=== PATIENT | male | born 1955 | race Asian ===

== ENCOUNTER 2017-01-05 09:26 | Outpatient (CLI) | payer OTHER ==
[2017-01-05 10:05] LABS: PLATELET COUNT 137 K/uL (142-355)
[2017-01-05 10:27] LABS: POTASSIUM 4.5 mmol/L (3.6-5.2)
== END 2017-01-05 19:21 | disposition home or self-care (01) ==
LOC: LABW 09:26
DX: I10 Essential (primary) hypertension (principal); Z13.89 Encounter for screening for other disorder; E78.4 Other hyperlipidemia; E11.9 Type 2 diabetes mellitus without complications; Z79.899 Other long term (current) drug therapy; R53.1 Weakness; Z51.81 Encounter for therapeutic drug level monitoring; M79.671 Pain in right foot
CPT/HCPCS: 36415; 80053; 80061; 83036; 84550; 85027; 86803

== ENCOUNTER 2017-09-16 10:12 | Outpatient (CLI) | payer OTHER ==
[2017-09-16 10:51] LABS: POTASSIUM 3.9 mmol/L (3.6-5.2)
== END 2017-09-16 20:54 | disposition home or self-care (01) ==
LOC: LABW 10:12
DX: I10 Essential (primary) hypertension (principal); E11.9 Type 2 diabetes mellitus without complications; Z79.899 Other long term (current) drug therapy; Z51.81 Encounter for therapeutic drug level monitoring; Z12.5 Encounter for screening for malignant neoplasm of prostate; E78.4 Other hyperlipidemia; M79.672 Pain in left foot
CPT/HCPCS: 36415; 80048; 80061; 83036; 84153; 84460; 84550

== ENCOUNTER 2021-06-12 08:30 | Emergency (ER) | payer OTHER ==
[~2021-06-12] VITALS: Ht 180.3 cm; Wt 115.2 kg
[2021-06-12 08:38] VITALS: BP 158/61; TEMP 97.8
== END 2021-06-12 11:20 | disposition home or self-care (01) ==
LOC: ED 08:30
PROC: 0HQ3XZZ Repair Left Ear Skin, External Approach (ICD-10-PCS; principal; 2021-06-12)
DX: S01.312A Laceration without foreign body of left ear, initial encounter (principal); W01.190A Fall on same level from slipping, tripping and stumbling with subsequent striking against furniture, initial encounter; Y92.128 Other place in nursing home as the place of occurrence of the external cause
CPT/HCPCS: 90715; 99283

== ENCOUNTER 2021-06-19 09:33 | Emergency (ER) | payer OTHER ==
[~2021-06-19] VITALS: Ht 180.3 cm; Wt 115.2 kg
[2021-06-19 09:43] VITALS: BP 177/108; TEMP 97.5
== END 2021-06-19 10:05 | disposition home or self-care (01) ==
LOC: ED 09:33
DX: S01.312D Laceration without foreign body of left ear, subsequent encounter (principal); W01.190D Fall on same level from slipping, tripping and stumbling with subsequent striking against furniture, subsequent encounter; Y92.89 Other specified places as the place of occurrence of the external cause

== ENCOUNTER 2021-06-26 10:53 | Emergency (ER) | payer OTHER ==
[~2021-06-26] VITALS: Ht 180.3 cm; Wt 115.7 kg
[2021-06-26 11:04] VITALS: BP 164/77; TEMP 97.8
== END 2021-06-26 11:30 | disposition home or self-care (01) ==
LOC: ED 10:53
DX: Z48.02 Encounter for removal of sutures (principal)

== ENCOUNTER 2021-08-01 08:11 | Outpatient (CLI) | payer OTHER | END 2021-08-01 19:07 | disposition home or self-care (01) | LOC: CT 08:11 | PROVIDERS: ATTEND Surgery | DX: C18.2 Malignant neoplasm of ascending colon (principal) | CPT/HCPCS: 36415; 82565; 84520; Q9963 ==

== ENCOUNTER 2021-12-12 18:22 | Emergency (ER) | payer OTHER ==
[~2021-12-12] VITALS: Ht 180.3 cm; Wt 114.3 kg
[2021-12-12 19:35] LABS: PLATELET COUNT 203 K/uL (142-355)
[2021-12-12 19:44] LABS: POTASSIUM 3.9 mmol/L (3.6-5.2)
[2021-12-12 19:54] LABS: PARTIAL THROMBOPLASTIN TIME 26.7 SECONDS (24.5-33.6)
[2021-12-12 21:30] VITALS: BP 161/77; TEMP 97.9
== END 2021-12-12 21:35 | disposition short-term general hospital (02) ==
LOC: ED 18:22
PROVIDERS: Emergency Medicine
DX: I63.89 Other cerebral infarction (principal); I50.9 Heart failure, unspecified; Z11.52 Encounter for screening for COVID-19
CPT/HCPCS: 36415; 36600; 80053; 82805; 83880; 84484; 85027; 85379; 85610; 85730; 87635; 93005; 96360; 96365; 99285; J1940; U0003

== ENCOUNTER 2022-01-13 11:23 | Outpatient (CLI) | payer OTHER ==
[2022-01-13 11:39] LABS: PLATELET COUNT 169 K/uL (142-355)
== END 2022-01-13 19:33 | disposition home or self-care (01) ==
LOC: LAB 11:23
PROVIDERS: ATTEND Family Medicine
DX: E78.49 Other hyperlipidemia (principal); E11.9 Type 2 diabetes mellitus without complications; N40.0 Benign prostatic hyperplasia without lower urinary tract symptoms; Z89.511 Acquired absence of right leg below knee; I48.91 Unspecified atrial fibrillation; N18.2 Chronic kidney disease, stage 2 (mild); R97.20 Elevated prostate specific antigen [PSA]; C18.6 Malignant neoplasm of descending colon; C78.7 Secondary malignant neoplasm of liver and intrahepatic bile duct; I69.354 Hemiplegia and hemiparesis following cerebral infarction affecting left non-dominant side; R26.2 Difficulty in walking, not elsewhere classified; I63.9 Cerebral infarction, unspecified; Z90.49 Acquired absence of other specified parts of digestive tract; R53.1 Weakness; G47.00 Insomnia, unspecified; I12.9 Hypertensive chronic kidney disease with stage 1 through stage 4 chronic kidney disease, or unspecified chronic kidney disease
CPT/HCPCS: 80053; 80061; 81002; 82043; 83036; 83735; 84439; 84443; 85027

== ENCOUNTER 2022-12-25 09:25 | Outpatient (CLI) | payer OTHER | END 2022-12-25 19:48 | disposition home or self-care (01) | LOC: NM 09:25 | PROVIDERS: ATTEND Family Medicine | DX: L89.892 Pressure ulcer of other site, stage 2 (principal) | CPT/HCPCS: A9561 ==

== ENCOUNTER 2023-01-20 10:53 | Outpatient (CLI) | payer OTHER ==
[2023-01-20 11:16] LABS: PLATELET COUNT 136 K/uL (142-355)
[2023-01-20 11:45] LABS: POTASSIUM 3.9 mmol/L (3.6-5.2)
== END 2023-01-20 19:15 | disposition home or self-care (01) ==
LOC: LAB 10:53
PROVIDERS: ATTEND Family Medicine
DX: M86.171 Other acute osteomyelitis, right ankle and foot (principal)
CPT/HCPCS: 80053; 85027; 85652; 86140

== ENCOUNTER 2023-02-09 15:27 | Outpatient (CLI) | payer OTHER ==
[~2023-02-09] VITALS: Ht 165.1 cm; Wt 99.8 kg
[2023-02-09 17:00] VITALS: BP 148/94; TEMP 98
[2023-02-09 17:33] LABS: POTASSIUM 3.8 mmol/L (3.6-5.2)
[2023-02-09 19:45] VITALS: BP 105/61; TEMP 98.6
== END 2023-02-09 19:11 | disposition home or self-care (01) ==
LOC: INF 15:27
PROVIDERS: ATTEND Internal Medicine
DX: M86.161 Other acute osteomyelitis, right tibia and fibula (principal)
CPT/HCPCS: 80048; 96365; 96366; J3370

== ENCOUNTER 2023-02-10 15:15 | Outpatient (CLI) | payer OTHER ==
[~2023-02-10] VITALS: Ht 165.1 cm; Wt 99.8 kg
== END 2023-02-10 19:01 | disposition home or self-care (01) ==
LOC: INF 15:15
PROVIDERS: ATTEND Internal Medicine
DX: M86.161 Other acute osteomyelitis, right tibia and fibula (principal)
CPT/HCPCS: 96365

== ENCOUNTER 2023-02-11 15:43 | Outpatient (CLI) | payer OTHER ==
[~2023-02-11] VITALS: Ht 165.1 cm; Wt 99.8 kg
[2023-02-11 17:47] VITALS: BP 96/54; TEMP 97.5
== END 2023-02-11 19:20 | disposition home or self-care (01) ==
LOC: INF 15:43
PROVIDERS: ATTEND Internal Medicine Endocrinology, Diabetes & Metabolism
DX: M86.161 Other acute osteomyelitis, right tibia and fibula (principal)
CPT/HCPCS: J3370

== ENCOUNTER 2023-02-12 15:14 | Outpatient (CLI) | payer OTHER | END 2023-02-12 18:54 | disposition home or self-care (01) | LOC: INF 15:14 | PROVIDERS: ATTEND Internal Medicine Endocrinology, Diabetes & Metabolism | DX: M86.161 Other acute osteomyelitis, right tibia and fibula (principal) | CPT/HCPCS: 96365; 96366; J3370 ==

== ENCOUNTER 2023-02-13 15:19 | Outpatient (CLI) | payer OTHER ==
[~2023-02-13] VITALS: Ht 165.1 cm; Wt 99.8 kg
[2023-02-13 17:42] VITALS: BP 129/78; BP 134/78; TEMP 98.5; TEMP 98.6
[2023-02-13 19:19] VITALS: BP 129/78; TEMP 97.6
== END 2023-02-13 19:08 | disposition home or self-care (01) ==
LOC: INF 15:19
PROVIDERS: ATTEND Internal Medicine Endocrinology, Diabetes & Metabolism
DX: M86.161 Other acute osteomyelitis, right tibia and fibula (principal)
CPT/HCPCS: 80202; 96365; J3370

== ENCOUNTER → 2023-02-14 | Outpatient (CLI) | payer OTHER ==
[~2023-02-14] VITALS: Ht 165.1 cm; Wt 99.8 kg
[2023-02-14 17:12] LABS: PLATELET COUNT 107 K/uL (142-355)
[2023-02-14 17:29] LABS: POTASSIUM 3.5 mmol/L (3.6-5.2)
== END ==
LOC: INF 16:05
PROVIDERS: ATTEND Internal Medicine Endocrinology, Diabetes & Metabolism
DX: M86.161 Other acute osteomyelitis, right tibia and fibula (principal)
CPT/HCPCS: 80053; 80202; 85027; 86140; 96365; 96366; J3370

== ENCOUNTER 2023-02-15 16:08 | Outpatient (CLI) | payer OTHER ==
[~2023-02-15] VITALS: Ht 165.1 cm; Wt 99.8 kg
[2023-02-15 16:25] VITALS: BP 137/68; TEMP 97.2
== END 2023-02-15 22:01 | disposition home or self-care (01) ==
LOC: INF 16:08
PROVIDERS: ATTEND Internal Medicine Endocrinology, Diabetes & Metabolism
DX: M86.161 Other acute osteomyelitis, right tibia and fibula (principal)
CPT/HCPCS: J3370

== ENCOUNTER 2023-02-16 15:25 | Outpatient (CLI) | payer OTHER ==
[~2023-02-16] VITALS: Ht 165.1 cm; Wt 99.8 kg
[2023-02-16 16:00] VITALS: BP 130/80; TEMP 97.7
== END 2023-02-16 23:00 | disposition home or self-care (01) ==
LOC: INF 15:25
PROVIDERS: ATTEND Internal Medicine Endocrinology, Diabetes & Metabolism
DX: M86.161 Other acute osteomyelitis, right tibia and fibula (principal)
CPT/HCPCS: 96365; 96366; J3370

== ENCOUNTER 2023-02-18 15:39 | Outpatient (CLI) | payer OTHER ==
[~2023-02-18] VITALS: Ht 165.1 cm; Wt 99.8 kg
[2023-02-18 18:30] VITALS: BP 141/77; TEMP 98.2
== END 2023-02-18 19:55 | disposition home or self-care (01) ==
LOC: INF 15:39
PROVIDERS: ATTEND Internal Medicine
DX: M86.161 Other acute osteomyelitis, right tibia and fibula (principal)
CPT/HCPCS: 96365; 96366; J3370

== ENCOUNTER 2023-02-19 15:38 | Outpatient (CLI) | payer OTHER ==
[~2023-02-19] VITALS: Ht 165.1 cm; Wt 68.0 kg
[2023-02-19 17:38] VITALS: BP 128/72; TEMP 98.3
[2023-02-19 18:45] VITALS: BP 132/74; TEMP 98.5
== END 2023-02-19 19:41 | disposition home or self-care (01) ==
LOC: INF 15:38
PROVIDERS: ATTEND Internal Medicine
DX: M86.161 Other acute osteomyelitis, right tibia and fibula (principal)
CPT/HCPCS: 96365; J3370

== ENCOUNTER 2023-03-03 15:27 | Outpatient (CLI) | payer OTHER ==
[~2023-03-03] VITALS: Ht 165.1 cm; Wt 99.8 kg
== END 2023-03-03 19:42 | disposition home or self-care (01) ==
LOC: INF 15:27
PROVIDERS: ATTEND Internal Medicine Endocrinology, Diabetes & Metabolism
DX: M86.161 Other acute osteomyelitis, right tibia and fibula (principal)
CPT/HCPCS: 96365; J3370

== ENCOUNTER 2023-03-04 15:46 | Outpatient (CLI) | payer OTHER ==
[~2023-03-04] VITALS: Ht 165.1 cm; Wt 99.8 kg
[2023-03-04 17:00] VITALS: BP 165/98; TEMP 98.7
== END 2023-03-04 19:32 | disposition home or self-care (01) ==
LOC: INF 15:46
PROVIDERS: ATTEND Internal Medicine
DX: M86.161 Other acute osteomyelitis, right tibia and fibula (principal)
CPT/HCPCS: 96365; J3370

== ENCOUNTER 2023-03-05 16:04 | Outpatient (CLI) | payer OTHER ==
[~2023-03-05] VITALS: Ht 165.1 cm; Wt 99.8 kg
== END 2023-03-05 19:30 | disposition home or self-care (01) ==
LOC: INF 16:04
PROVIDERS: ATTEND Family Medicine
DX: M86.161 Other acute osteomyelitis, right tibia and fibula (principal)
CPT/HCPCS: 96365; J3370

== ENCOUNTER 2023-03-06 16:41 | Outpatient (CLI) | payer OTHER ==
[~2023-03-06] VITALS: Ht 165.1 cm; Wt 99.8 kg
[2023-03-06 16:50] VITALS: BP 161/91; TEMP 98.3
[2023-03-06 18:12] VITALS: BP 147/84; TEMP 98
== END 2023-03-06 19:04 | disposition home or self-care (01) ==
LOC: INF 16:41
PROVIDERS: ATTEND Internal Medicine
DX: M86.161 Other acute osteomyelitis, right tibia and fibula (principal)
CPT/HCPCS: 96365; J3370

== ENCOUNTER 2023-03-07 16:36 | Outpatient (CLI) | payer OTHER ==
[~2023-03-07] VITALS: Ht 165.1 cm; Wt 99.8 kg
[2023-03-07 16:40] VITALS: BP 158/90; TEMP 97.6
[2023-03-07 18:15] VITALS: BP 158/93; TEMP 98.5
== END 2023-03-07 18:52 | disposition home or self-care (01) ==
LOC: INF 16:36
PROVIDERS: ATTEND Internal Medicine
DX: M86.161 Other acute osteomyelitis, right tibia and fibula (principal)
CPT/HCPCS: 96365; J1642; J3370

== ENCOUNTER 2023-03-08 16:37 | Outpatient (CLI) | payer OTHER ==
[~2023-03-08] VITALS: Ht 165.1 cm; Wt 99.8 kg
[2023-03-08 16:44] VITALS: BP 163/85; TEMP 98.2
[2023-03-08 17:55] VITALS: BP 156/77; TEMP 98.1
== END 2023-03-08 19:16 | disposition home or self-care (01) ==
LOC: INF 16:37
PROVIDERS: ATTEND Internal Medicine
DX: M86.161 Other acute osteomyelitis, right tibia and fibula (principal)
CPT/HCPCS: 96365; J3370

== ENCOUNTER 2023-03-09 16:17 | Outpatient (CLI) | payer OTHER ==
[~2023-03-09] VITALS: Ht 165.1 cm; Wt 99.8 kg
[2023-03-09 18:14] VITALS: BP 157/94; TEMP 97.8
== END 2023-03-09 23:00 | disposition home or self-care (01) ==
LOC: INF 16:17
PROVIDERS: ATTEND Family Medicine
DX: M86.161 Other acute osteomyelitis, right tibia and fibula (principal)
CPT/HCPCS: 96365; J3370

== ENCOUNTER 2023-03-10 17:18 | Outpatient (CLI) | payer OTHER ==
[~2023-03-10] VITALS: Ht 165.1 cm; Wt 99.8 kg
== END 2023-03-10 19:00 | disposition home or self-care (01) ==
LOC: INF 17:18
PROVIDERS: ATTEND Internal Medicine
DX: M86.161 Other acute osteomyelitis, right tibia and fibula (principal)
CPT/HCPCS: 96365; J3370

== ENCOUNTER 2023-03-11 16:46 | Outpatient (CLI) | payer OTHER ==
[~2023-03-11] VITALS: Ht 165.1 cm; Wt 99.8 kg
[2023-03-11 17:00] VITALS: BP 150/79; TEMP 97.7
== END 2023-03-11 19:31 | disposition home or self-care (01) ==
LOC: INF 16:46
PROVIDERS: ATTEND Internal Medicine Endocrinology, Diabetes & Metabolism
DX: M86.161 Other acute osteomyelitis, right tibia and fibula (principal)
CPT/HCPCS: 96365; J3370

== ENCOUNTER 2023-03-12 16:40 | Outpatient (CLI) | payer OTHER ==
[~2023-03-12] VITALS: Ht 30.5 cm; Wt 0.5 kg
== END 2023-03-12 20:02 | disposition home or self-care (01) ==
LOC: INF 16:40
PROVIDERS: ATTEND Internal Medicine Endocrinology, Diabetes & Metabolism
DX: M86.161 Other acute osteomyelitis, right tibia and fibula (principal)
CPT/HCPCS: 96365; J3370

== ENCOUNTER 2023-03-13 17:28 | Outpatient (CLI) | payer OTHER ==
[~2023-03-13] VITALS: Ht 165.1 cm; Wt 68.0 kg
[2023-03-13 17:36] VITALS: BP 125/68; TEMP 98
[2023-03-13 19:22] VITALS: BP 130/66; TEMP 98
== END 2023-03-13 19:54 | disposition home or self-care (01) ==
LOC: INF 17:28
PROVIDERS: ATTEND Internal Medicine Endocrinology, Diabetes & Metabolism
DX: M86.161 Other acute osteomyelitis, right tibia and fibula (principal)
CPT/HCPCS: J1642; J3370

== ENCOUNTER 2023-03-14 16:17 | Outpatient (CLI) | payer OTHER ==
[~2023-03-14] VITALS: Ht 165.1 cm; Wt 99.8 kg
[2023-03-14 16:30] VITALS: BP 126/70; TEMP 98.3
[2023-03-14 17:45] VITALS: BP 125/73; TEMP 98.1
== END 2023-03-14 18:42 | disposition home or self-care (01) ==
LOC: INF 16:17
PROVIDERS: ATTEND Internal Medicine Endocrinology, Diabetes & Metabolism
DX: M86.161 Other acute osteomyelitis, right tibia and fibula (principal)
CPT/HCPCS: J1642; J3370

== ENCOUNTER 2023-03-15 16:37 | Outpatient (CLI) | payer OTHER ==
[~2023-03-15] VITALS: Ht 165.1 cm; Wt 99.8 kg
[2023-03-15 16:55] VITALS: BP 145/67; TEMP 98.8
[2023-03-15 18:26] VITALS: BP 123/65; TEMP 98.2
== END 2023-03-15 19:01 | disposition home or self-care (01) ==
LOC: INF 16:37
PROVIDERS: ATTEND Internal Medicine Endocrinology, Diabetes & Metabolism
DX: M86.161 Other acute osteomyelitis, right tibia and fibula (principal)
CPT/HCPCS: J3370

== ENCOUNTER 2023-03-16 16:56 | Outpatient (CLI) | payer OTHER ==
[~2023-03-16] VITALS: Ht 165.1 cm; Wt 99.8 kg
== END 2023-03-16 23:01 | disposition home or self-care (01) ==
LOC: INF 16:56
PROVIDERS: ATTEND Internal Medicine Endocrinology, Diabetes & Metabolism
DX: M86.161 Other acute osteomyelitis, right tibia and fibula (principal)
CPT/HCPCS: 96365; J1642; J3370

== ENCOUNTER 2023-03-17 16:31 | Outpatient (CLI) | payer OTHER ==
[~2023-03-17] VITALS: Ht 165.1 cm; Wt 99.8 kg
== END 2023-03-17 19:15 | disposition home or self-care (01) ==
LOC: INF 16:31
PROVIDERS: ATTEND Family Medicine
DX: M86.161 Other acute osteomyelitis, right tibia and fibula (principal)

== ENCOUNTER 2023-03-20 16:43 | Outpatient (CLI) | payer OTHER ==
[~2023-03-20] VITALS: Ht 165.1 cm; Wt 99.8 kg
== END 2023-03-20 23:51 | disposition home or self-care (01) ==
LOC: INF 16:43
PROVIDERS: ATTEND Family Medicine
DX: M86.161 Other acute osteomyelitis, right tibia and fibula (principal)
CPT/HCPCS: J3370

== ENCOUNTER 2023-03-21 16:16 | Outpatient (CLI) | payer OTHER ==
[~2023-03-21] VITALS: Ht 165.1 cm; Wt 99.8 kg
== END 2023-03-21 22:04 | disposition home or self-care (01) ==
LOC: INF 16:16
PROVIDERS: ATTEND Family Medicine
DX: M86.161 Other acute osteomyelitis, right tibia and fibula (principal)
CPT/HCPCS: 96365; 96375